=== PATIENT | female | born 1950 | race Caucasian/White ===

== ENCOUNTER 2017-08-10 10:54 | Emergency (ER) | payer BC ==
[~2017-08-10] VITALS: Ht 162.6 cm; Wt 68.0 kg
[~2017-08-10 10:54] MED LIST: AMIT25TA20 PO; CHLO5CAP3 PO
[2017-08-10 10:55] VITALS: BP 180/85; PULSE 97; RESP 18; TEMP 98.7; O2SAT 100
[2017-08-10 11:04] VITALS: BP 172/103
--- NOTE | 2017-08-10 11:21 | PD ---
HPI Chief Complaint: Pain: Acute or Chronic Time Seen by Provider: 11:09 Travel History International Travel<30 days: No Contact w/Intl Traveler<30days: No Traveled to known affect area: No History of Present Illness HPI Patient comes in complaining of right-sided low back pain radiating down her right leg ongoing for 1 week. Patient denies any fevers, loss change in bowel or bladder, IV drug use, or trauma. Patient reports that she broke her L4 approximately 30 years ago in [place] is not sure if this is related. Patient reports taking ibuprofen and naproxen without improvement of symptoms. Pain is worse with walking and certain movement. Denies any numbness or tingling anywhere. PFSH Past Medical History Diminished Hearing: No GERD: Yes Hypertension: Yes Musculoskeletal: Yes (FX L4 1986, CHRONIC BACK PAIN) Ulcer: Yes Tetanus Vaccination: > 5 Years Influenza Vaccination: No ?: Not Past Surgical History Section: Yes (1972, 1976) Hysterectomy: Yes (1992) Social History Alcohol Use: Yes (wine rarely) Tobacco Use: No Substance Use: No Allergies-Medications (Allergen,Severity, Reaction): Coded Allergies: No Known Allergies (Verified , 12/16/11) Reported Meds & Prescriptions Reported Meds & Active Scripts Active Medrol Dosepak (Methylprednisolone) 4 Mg Dspk 4 Mg PO DIRECTED Per Pharmacist direction Reported Librium (Chlordiazepoxide) 5 Mg Cap 10 Mg PO DAILY Elavil (Amitriptyline HCl) 25 Mg Tab 50 Mg PO DAILY Review of Systems Except as stated in HPI: all other systems reviewed are Neg Physical Exam Narrative GENERAL: Well-developed, overly nourished, in no acute distress, and non-ill appearing. SKIN: Focused skin assessment warm and dry. HEAD: Atraumatic. Normocephalic. EYES: Pupils equal and round. EOMI. No scleral icterus. No injection or drainage. ENT: No nasal bleeding or discharge. Mucous membranes pink and moist. NECK: Trachea midline. Supple. No nuclear rigidity. CARDIOVASCULAR: Dorsal pulses 2+, intact, and equal bilaterally. Capillary refill less than 2 seconds. RESPIRATORY: No accessory muscle use. No respiratory distress. MUSCULOSKELETAL: No obvious deformities. No clubbing. No cyanosis. No edema. Full range of motion. Normal gait. Hip: FROM and equal BL with passive flexion , extension, Abduction, Adduction, and internal/external rotation. Pulses equal BL distal to injury. Capillary refill less than 2 seconds distal to injury and equal BL. FROM distal to injury and equal BL. Strength distal to injury equal BL. NV intact distal to injury and equal BL. Plantar flexion and dorsal flexion equal BL. Dorsal pulses equal BL. Sensation equal BL 1st web space. No tenderness or crepitus over midline of the lumbar spine. Patient reports tenderness to palpation near right SI joint. Straight leg test negative bilaterally. NEUROLOGICAL: Awake and alert. No obvious cranial nerve deficits. Motor grossly within normal limits. Normal speech. PSYCHIATRIC: Appropriate mood and affect; insight and judgment normal. Data Data Last Documented VS Vital Signs Date Time Temp Pulse Resp B/P (MAP) Pulse Ox O2 Delivery O2 Flow Rate FiO2 08/10/17 11:33 102 16 151/95 (113) 97 08/10/17 10:55 98.7 Room Air Orders Orders Ed Discharge Order (08/10/17 11:16) Dexamethasone Inj (Decadron Inj) (08/10/17 11:30) MDM Medical Decision Making Medical Screen Exam Complete: Yes Emergency Medical Condition: Yes Differential Diagnosis Fracture, strain, sciatica, contusion Narrative Course The patient presented complaining of back pain with radiation down leg. There was no history of recent fall or trauma. There was no evidence to support genitourinary etiology. There is also no evidence to suggest vascular pathology such as AAA dissection. No fevers or other evidence to suspect infectious processes, abscess, osteomyelitis etc. The patients neurological exam is normal with normal motor and sensory. There is no saddle paresthesias reported and no bowel or bladder incontinence or retention. I suspect the pain is mechanical in nature with sciatica. Clinical suspicion, plan of care and management was discussed with the patient. The patient was instructed to follow up with their health care provider. The patient was also instructed to return if the pain worsened, changed, or developed weakness or bowel or bladder trouble. The patient agreed with plan. The patient has a prior history of hypertension and states has been taking their antihypertensive medications. The patient has no symptoms as well. The patient denied headache, changes in vision, nausea, vomiting, dizziness, weakness or loss of sensation. The patient denied and chest, back or abdominal pain. The patient also denied any shortness of breath, dyspnea on exertion, orthopnea or PND. The patient denies any edema to extremities. The patients blood pressures at discharge were at an acceptable level. I discussed with the patient that the standard of care is to not adjust antihypertensive medications at this time and for them to follow up with a primary care physician for continued outpatient evaluation and potential adjustment of blood pressure medication at that time. Return warnings were given to the patient and the patient agreed with plan of care. Patient in no obvious distress upon re-evaluation. Patient was asked if they wanted to speak to my attending, which the patient did not wish to do at this time. Any questions/concerns in reference to patient diagnosis/condition discussed and clarified prior to patient's discharge. Reinforced sheer importance of close follow up with patient's primary physician or primary care clinic. Instructed patient to return to ED immediately, if symptoms return/ worsen. Patient showed understanding of above instructions. Further instructions and recommendations were detailed in discharge paperwork. Patient ambulated without difficulty out of ED at discharge. Diagnosis Primary Impression: Sciatica of right side Referrals: [facility] Patient Instructions: General Instructions, Sciatica (ED) Departure Forms: Work Release Enter return to work date: Aug 12, 2017 Additional Instructions: Follow-up with your primary care physician and/or orthopedic in 3-5 days for reevaluation of her sciatica. Follow-up with your primary care doctor for reevaluation of hypertension and possible adjustment of your blood pressure medicine.. Take all medication as prescribed. Return to the emergency department if symptoms get worse. Med/Other Pt SpecificInfo: Prescription(s) given Scripts Methylprednisolone Dosepak (Medrol Dosepak) 4 Mg Dspk 4 MG PO DIRECTED, #1 DSPK 0 Refills Per Pharmacist direction Prov: Hunter Sosa MD 08/10/17 Condition: Stable Sandeep Dan Aug 10, 2017 11:21
[2017-08-10] MEDS ORDERED: MEDR4PAK PO (11:22)
[2017-08-10] MEDS ORDERED: DEXAMETHASONE SOD PHOS 20 MG/5 ML VIAL IM ONE (11:30)
[2017-08-10 11:33] VITALS: BP 151/95
== END 2017-08-10 11:39 | disposition home or self-care (01) ==
LOC: NEPK 10:54
DX: M54.41 Lumbago with sciatica, right side (principal); I10 Essential (primary) hypertension
CPT/HCPCS: 96372; 99283; J1100

== ENCOUNTER 2017-08-12 17:38 | Emergency (ER) | payer BC ==
[~2017-08-12] VITALS: Ht 160 cm; Wt 71.5 kg
[2017-08-12 17:38] VITALS: BP 129/85; PULSE 101; RESP 20; TEMP 98.8; O2SAT 98
[~2017-08-12 17:38] MED LIST changes: +MEDR4PAK PO
--- NOTE | 2017-08-12 17:55 | PD ---
HPI Chief Complaint: Musculoskeletal Complaint Time Seen by Provider: 17:55 Travel History International Travel<30 days: No Contact w/Intl Traveler<30days: No Traveled to known affect area: No History of Present Illness HPI 67-year-old female came to the emergency room with history of lower back pain radiating down her right back of her leg all the way up to the ankle. Patient says that this pain has been there for 2 months but has become really worse for past 3 days. Patient was in the emergency room 2 days ago and was seen by provider. She was started on Medrol Dosepak but her symptoms have not improved. Her son brought her in was doing the translation since patient initially only. She looks very uncomfortable. She said that the medication did not work at all. [facility] Past Medical History Narrative Medical List of her past medical, surgical, social and family history is reviewed from the nursing note. Diminished Hearing: No GERD: Yes Hypertension: Yes Musculoskeletal: Yes ( L4 1986, CHRONIC BACK PAIN) Ulcer: Yes Past Surgical History Section: Yes (1972, 1976) Hysterectomy: Yes (1992) Social History Alcohol Use: Yes (wine rarely) Tobacco Use: No Substance Use: No Allergies-Medications (Allergen,Severity, Reaction): Coded Allergies: No Known Allergies (Verified Adverse Reaction, Unknown, 08/12/17) Comments No known drug allergies Reported Meds & Prescriptions Reported Meds & Active Scripts Active Ultram (Tramadol HCl) 50 Mg Tab 50 Mg PO Q6H PRN Mobic (Meloxicam) 15 Mg Tab 15 Mg PO DAILY Zantac (Ranitidine HCl) 300 Mg Tab 300 Mg PO DAILY Medrol Dosepak (Methylprednisolone) 4 Mg Dspk 4 Mg PO DIRECTED Per Pharmacist direction Narrative Medication List of her home medications reviewed from the nursing note. Review of Systems Except as stated in HPI: all other systems reviewed are Neg Physical Exam Narrative GENERAL: Awake, alert, significant distress SKIN: Focused skin assessment warm/dry. HEAD: Atraumatic. Normocephalic. EYES: Pupils equal and round. No scleral icterus. No injection or drainage. ENT: No nasal bleeding or discharge. Mucous membranes pink and moist. NECK: Trachea midline. No JVD. CARDIOVASCULAR: Regular rate and rhythm. No murmur appreciated. RESPIRATORY: No accessory muscle use. Clear to auscultation. Breath sounds equal bilaterally. GASTROINTESTINAL: Abdomen soft, non-tender, nondistended. Hepatic and splenic margins not palpable. MUSCULOSKELETAL: No obvious deformities. No clubbing. No cyanosis. No edema. Positive SLR NEUROLOGICAL: Awake and alert. No obvious cranial nerve deficits. Motor grossly within normal limits. Normal speech. PSYCHIATRIC: Appropriate mood and affect; insight and judgment normal. Data Data Last Documented VS Vital Signs Date Time Temp Pulse Resp B/P (MAP) Pulse Ox O2 Delivery O2 Flow Rate FiO2 08/12/17 20:30 08/12/17 18:45 16 08/12/17 17:38 98.8 101 98 Room Air Orders Orders Hydromorphone Pf Inj (Dilaudid Pf Inj) (08/12/17 18:15) Orphenadrine Inj (Norflex Inj) (08/12/17 18:15) Ketorolac Inj (Toradol Inj) (08/12/17 18:15) Ct Lumb Spine W/O Contrast (08/12/17 ) Complete Blood Count With Diff (08/12/17 19:08) Basic Metabolic Panel (Bmp) (08/12/17 19:08) Ondansetron Inj (Zofran Inj) (08/12/17 19:30) Ed Discharge Order (08/12/17 20:03) Labs Laboratory Tests Test 08/12/17 19:30 White Blood Count 22.2 TH/MM3 Red Blood Count 5.79 MIL/MM3 Hemoglobin 15.4 GM/DL Hematocrit 43.9 % Mean Corpuscular Volume 75.8 FL Mean Corpuscular Hemoglobin 26.6 PG Mean Corpuscular Hemoglobin Concent 35.1 % Red Cell Distribution Width 15.2 % Platelet Count 395 TH/MM3 Mean Platelet Volume 8.3 FL Neutrophils (%) (Auto) 80.2 % Lymphocytes (%) (Auto) 14.8 % Monocytes (%) (Auto) 4.2 % Eosinophils (%) (Auto) 0.0 % Basophils (%) (Auto) 0.8 % Neutrophils # (Auto) 17.8 TH/MM3 Lymphocytes # (Auto) 3.3 TH/MM3 Monocytes # (Auto) 0.9 TH/MM3 Eosinophils # (Auto) 0.0 TH/MM3 Basophils # (Auto) 0.2 TH/MM3 CBC Comment DIFF FINAL Differential Comment Blood Urea Nitrogen 18 MG/DL Creatinine 0.80 MG/DL Random Glucose 156 MG/DL Calcium Level 9.3 MG/DL Sodium Level 136 MEQ/L Potassium Level 3.8 MEQ/L Chloride Level 102 MEQ/L Carbon Dioxide Level 26.1 MEQ/L Anion Gap 8 MEQ/L Estimat Glomerular Filtration Rate 72 ML/MIN MDM Medical Decision Making Medical Screen Exam Complete: Yes Emergency Medical Condition: Yes Medical Record Reviewed: Yes Differential Diagnosis Lumbar radiculopathy, spinal tumor Narrative Course 7:04 PM patient was medicated for pain. At ordered a CT scan of her lumbar spine which has been read by the radiologist as a possible nerve root tumor. I' ve ordered an MRI. Patient will be signed over to the oncoming ER physician. Procedures EKG Prior to Arrival: No Scripts Tramadol (Ultram) 50 Mg Tab 50 MG PO Q6H Y for PAIN, #20 TAB 0 Refills Prov: Gorge Guerrero MD 08/12/17 Meloxicam (Mobic) 15 Mg Tab 15 MG PO DAILY for Pain, #20 TAB 0 Refills Prov: Gorge Guerrero MD 08/12/17 Ranitidine (Zantac) 300 Mg Tab 300 MG PO DAILY, #30 TAB 0 Refills Prov: Gorge Guerrero MD 08/12/17 Tony Muse MD Aug 12, 2017 17:55
[2017-08-12] MEDS ORDERED: ORPHENADRINE INJ 60 MG/2 ML AMP IM ONE (18:15)
[2017-08-12] MEDS ORDERED: KETOROLAC TROMETHAMINE 60 MG/2 ML (IM) VIAL IM ONE (18:15)
[2017-08-12] MEDS ORDERED: HYDROmorphone HCL PF 2 MG/ML VIAL IM ONE (18:15)
[2017-08-12 18:45] VITALS: RESP 16
--- NOTE | 2017-08-12 18:50 | RADRPT ---
EXAM DATE/TIME: 08/12/2017 18:11 [place] COMPARISON: No previous studies available for comparison. INDICATIONS : Radiculopathy, back pain, radiates to right leg. RADIATION DOSE: 21.24 CTDIvol (mGy) MEDICAL HISTORY : Hypertension. Gastroesophageal reflux disease. SURGICAL HISTORY : Hysterectomy. ENCOUNTER: Initial ACUITY: 4 - 6 days PAIN SCALE: 8/10 LOCATION: lower back TECHNIQUE: Volumetric scanning of the lumbar spine was performed. Multiplanar reconstructions in the sagittal, coronal and oblique axial planes were performed. Using automated exposure control and adjustment of the mA and/or kV according to patient size, radiation dose was kept as low as reasonably achievable t o obtain optimal diagnostic quality images. DICOM format image data is available electronically for review and comparison. FINDINGS: VERTEBRAE: Normal vertebral body height. There is straightening of the normal lumbar lordosis. There is mild sco liosis. DISCS: Diffuse degenerative disc changes are noted with disc space narrowing and hypertrophic change. ALIGNMENT: No evidence of subluxation. T12-L1: There is a mild annular disc bulge with flattening of the anterior thecal sac and no focal protrusion . There are mild degenerative changes involving the facet joints. The neural foramina are patent bila terally. L1-L2: There is a mild annular disc bulge with flattening of the anterior thecal sac and no focal protrusion . There are mild degenerative changes involving the facet joints. The neural foramina are patent bila terally. L2-L3: There is a mild annular disc bulge with flattening of the anterior thecal sac and no focal protrusion . There are mild degenerative changes involving the facet joints. The neural foramina are patent bila terally. L3-L4: There is a mild annular disc bulge with flattening of the anterior thecal sac and no focal protrusion . There are mild degenerative changes involving the facet joints. The neural foramina are patent bila terally. L4-L5: There is a moderate disc bulge with flattening of the anterior thecal sac and narrowing of the neural foramina. There is a focal 11 x 9 mm high density masslike structure along the right neural foramina . Severe from the disc margin. This is best seen on images #69 and 70. L5-S1: Mild disc bulge with minimal flattening of the anterior thecal sac. There is mild narrowing of the ne ural foramina. Mild degenerative changes are noted involving the facet joints. CONCLUSION: 1. High density masslike structure along the right neural foramen at the L4-5 level measuring 11 x 9 mm of unclear significance. This could represent possible nerve root tumor. Disc protrusion/extrusion is also a consideration. Further evaluation with MRI imaging with and without contrast is recommende d for further evaluation. 2. Mild annular disc bulges throughout the lumbar spine. There are diffuse degenerative disc changes as well. Elias Linn MD on August 12, 2017 at 18:42 Board Certified Radiologist. This report was verified electronically.
[2017-08-12] MEDS ORDERED: ONDANSETRON HCL 4 MG/2 ML VIAL IV PUSH ONE (19:30)
[2017-08-12 19:57] LABS: AUTOMATED NEUTROPHIL # 17.8 TH/MM3 (1.8-7.7); BASOPHIL # 0.2 TH/MM3 (0-0.2); BASOPHIL % 0.8 % (0.0-2.0); HEMATOCRIT 43.9 % (35.0-46.0); HEMOGLOBIN 15.4 GM/DL (11.6-15.3); LYMPH % 14.8 % (9.0-44.0); LYMPHOCYTE # 3.3 TH/MM3 (1.0-4.8); MEAN CELL VOLUME 75.8 FL (80.0-100.0); MEAN CORPUSCULAR HEMOGLOBIN 26.6 PG (27.0-34.0); MEAN CORPUSCULAR HGB CONC 35.1 % (32.0-36.0); MEAN PLATELET VOLUME 8.3 FL (7.0-11.0); MONO % 4.2 % (0.0-8.0); MONOCYTE # 0.9 TH/MM3 (0-0.9); NEUT % 80.2 % (16.0-70.0); PLATELET COUNT 395 TH/MM3 (150-450); RED BLOOD COUNT 5.79 MIL/MM3 (4.00-5.30); RED CELL DISTRIBUTION WIDTH 15.2 % (11.6-17.2); WHITE BLOOD COUNT 22.2 TH/MM3 (4.0-11.0)
[2017-08-12] MEDS ORDERED: ZANT300T PO (20:01)
[2017-08-12] MEDS ORDERED: TRAM50 PO (20:01)
[2017-08-12] MEDS ORDERED: MOBI15TA PO (20:01)
--- NOTE | 2017-08-12 20:01 | PD ---
Physical Exam Narrative Patient was seen by ED physician and signed out to me. Data Data Last Documented VS Vital Signs Date Time Temp Pulse Resp B/P (MAP) Pulse Ox O2 Delivery O2 Flow Rate FiO2 08/12/17 18:45 16 08/12/17 17:38 98.8 101 129/85 (100) 98 Room Air Orders Orders Hydromorphone Pf Inj (Dilaudid Pf Inj) (08/12/17 18:15) Orphenadrine Inj (Norflex Inj) (08/12/17 18:15) Ketorolac Inj (Toradol Inj) (08/12/17 18:15) Ct Lumb Spine W/O Contrast (08/12/17 ) Complete Blood Count With Diff (08/12/17 19:08) Basic Metabolic Panel (Bmp) (08/12/17 19:08) Ondansetron Inj (Zofran Inj) (08/12/17 19:30) Ed Discharge Order (08/12/17 20:03) Labs Laboratory Tests Test 08/12/17 19:30 White Blood Count 22.2 TH/MM3 Red Blood Count 5.79 MIL/MM3 Hemoglobin 15.4 GM/DL Hematocrit 43.9 % Mean Corpuscular Volume 75.8 FL Mean Corpuscular Hemoglobin 26.6 PG Mean Corpuscular Hemoglobin Concent 35.1 % Red Cell Distribution Width 15.2 % Platelet Count 395 TH/MM3 Mean Platelet Volume 8.3 FL Neutrophils (%) (Auto) 80.2 % Lymphocytes (%) (Auto) 14.8 % Monocytes (%) (Auto) 4.2 % Eosinophils (%) (Auto) 0.0 % Basophils (%) (Auto) 0.8 % Neutrophils # (Auto) 17.8 TH/MM3 Lymphocytes # (Auto) 3.3 TH/MM3 Monocytes # (Auto) 0.9 TH/MM3 Eosinophils # (Auto) 0.0 TH/MM3 Basophils # (Auto) 0.2 TH/MM3 CBC Comment DIFF FINAL Differential Comment [facility] Supervised Visit with TEHRESA: No Narrative Course Patient was seen several days ago for right sciatica. Patient was given Medrol Dosepak. Patient had persistent pain right low back with radiation to right leg. Patient was seen by personal physician and had outpatient MRI done a few days ago which showed bulging disc at L4-L5 level with pressing on to the nerve root. Patient has CT lumbar spine done today which showed bulging disc versus mass. Patient was given analgesic. Patient has improvement in pain level. Patient has Dilaudid, Toradol, Norflex, Zofran and the ED. Diagnosis Primary Impression: Radiculopathy Qualified Codes: M54.16 - Radiculopathy, lumbar region Patient Instructions: General Instructions Additional Instruction: Stop Medrol Dosepak. Take medications as directed. Follow-up with neurosurgeon and personal physician. Return if worse. Med/Other Pt SpecificInfo: Prescription(s) given Scripts Tramadol (Ultram) 50 Mg Tab 50 MG PO Q6H Y for PAIN, #20 TAB 0 Refills Prov: Gorge Guerrero MD 08/12/17 Meloxicam (Mobic) 15 Mg Tab 15 MG PO DAILY for Pain, #20 TAB 0 Refills Prov: Gorge Guerrero MD 08/12/17 Ranitidine (Zantac) 300 Mg Tab 300 MG PO DAILY, #30 TAB 0 Refills Prov: Gorge Guerrero MD 08/12/17 Disposition: 01 DISCHARGE HOME Condition: Stable Gorge Guerrero MD Aug 12, 2017 20:01
[2017-08-12 20:12] LABS: BICARBONATE 26.1 MEQ/L (21.0-32.0); CALCIUM 9.3 MG/DL (8.5-10.1); CREATININE 0.8 MG/DL (0.50-1.00)
== END 2017-08-12 20:40 | disposition home or self-care (01) ==
LOC: NEPE 17:38
DX: M54.16 Radiculopathy, lumbar region (principal); M51.36 Other intervertebral disc degeneration, lumbar region; K21.9 Gastro-esophageal reflux disease without esophagitis; I10 Essential (primary) hypertension; Z79.899 Other long term (current) drug therapy
CPT/HCPCS: 72131; 80048; 85025; 96372; 96374; 99285; J1170; J1885; J2360; J2405